=== PATIENT | male | born 1960 | race Caucasian/White ===

== ENCOUNTER → 2017-11-22 | Outpatient (CLI) | payer BC ==
--- NOTE | 2017-11-23 11:00 | ECHOS ---
STRESS ECHOCARDIOGRAM DATE OF SERVICE: 11/22/2017 INDICATIONS: Chest pain. MEDICATIONS: BASELINE HEART RATE: 73 BASELINE BLOOD PRESSURE: 115/62 MAXIMUM HEART RATE: 150 MAXIMUM BLOOD PRESSURE: 217/52 85% MPHR: 139 100% MPHR: 164 METS: 10.1 MAXIMUM STAGE REACHED: II TOTAL EXERCISE TIME: 8 minutes 46 seconds CLINICAL INFORMATION: STRESS DATA: Pretesting physical examination showed a heart rate of 73, pressure is 115/62 mmHg. Baseline EKG showed sinus mechanism. The patient exercised on the treadmill according to Steven protocol for a total of 8 minutes and 46 seconds and achieved 10.1 METs. Max heart rate was 150, which is about 91% of maximum predicted heart rate. Maximum blood pressure was 217/52 mmHg. Clinically the patient did not have any symptoms of chest pain or discomfort, but he developed shortness of breath. The EKG did not show any significant ST or T-wave abnormalities concerning for ischemia. ECHOCARDIOGRAM IMAGES: Echocardiogram images from parasternal long axis view, parasternal short axis view apical 4 chamber and apical 2 chamber view were obtained as the baseline images, at the peak of the heart rate as well as on recovery. The echocardiogram images showed good augmentation in the left ventricular systolic function without any obvious wall motion abnormalities concerning for ischemia. CONCLUSION: 1. Good exercise capacity. 2. Normal EKG in response to exercise. 3. Normal echocardiogram in response to exercise. 4. Essentially normal stress echocardiogram for the patient. MMODL / IJN: [id number] /
== END | disposition home or self-care (01) ==
LOC: RADNMMAIN 09:48
PROVIDERS: ATTEND Family Medicine
DX: I10 Essential (primary) hypertension (principal)
CPT/HCPCS: 93351; Q9950